=== PATIENT | male | born 1960 | race Caucasian/White ===

== ENCOUNTER 2021-12-23 21:53 | Inpatient (IN) | payer OTHER ==
[2021-12-23 23:40] VITALS: BMI 22.9
[2021-12-24] MEDS ORDERED: METHOCARBAMOL 500 MG TABLET PO PRN (00:21)
[2021-12-24] MEDS ORDERED: IBUPROFEN 400 MG TABLET (FP) PO PRN (00:21)
[2021-12-24] MEDS ORDERED: MAG HYDROX/AL HYDROX/SIMETH 30 ML UNIT-DOSE CUP PO PRN (00:21)
[2021-12-24] MEDS ORDERED: NICOTINE 10 MG CARTRIDGE (INHALER) IH PRN (00:21)
[2021-12-24] MEDS ORDERED: ACETAMINOPHEN 325 MG TABLET (FP) PO PRN ×2 (00:21)
[2021-12-24] MEDS ORDERED: IBUPROFEN 600 MG TABLET (FP) PO PRN (00:21)
[2021-12-24] MEDS ORDERED: BENZOCAINE/MENTHOL (CHLORASEPTIC ) LOZENGE MM PRN (00:21)
[2021-12-24] MEDS ORDERED: P-EPHED 60MG/TRIPROLIDI 2.5MG TABLET PO PRN (00:21)
[2021-12-24] MEDS ORDERED: LOPERAMIDE HCL 2 MG CAPSULE PO PRN (00:21)
[2021-12-24] MEDS ORDERED: DICYCLOMINE HCL 10 MG CAPSULE PO PRN (00:21)
[2021-12-24] MEDS ORDERED: MAGNESIUM HYDROX 2400MG/30ML ORAL SUSPENSION 30 ML CUP PO PRN (00:21)
[2021-12-24] MEDS ORDERED: ONDANSETRON *ODT* 4 MG TABLET SL PRN (00:21)
[2021-12-24] MEDS ORDERED: MAGNESIUM CITRATE 300 ML BOTTLE PO PRN (00:21)
[2021-12-24] MEDS ORDERED: BISMUTH SUBSALICYLATE 524 MG/30 ML PO PRN (00:21)
[2021-12-24] MEDS ORDERED: NICOTINE POLACRILEX 2 MG GUM BUC PRN (00:21)
[2021-12-24] MEDS ORDERED: guaiFENesin 200 MG/10 ML 10 ML UNIT-DOSE CUPS PO PRN (00:21)
[2021-12-24] MEDS ORDERED: cloNIDine HCL 0.1 MG TABLET PO ONE (07:05)
[2021-12-24] MEDS ORDERED: methaDONE HCL 10 MG TABLET PO ONE ×2 (08:47)
[2021-12-24] MEDS ORDERED: methaDONE HCL 40 MG DISPERSABLE TABLET ONE (09:21)
[2021-12-24] MEDS ORDERED: methaDONE HCL 10 MG TABLET ONE (09:21)
[2021-12-24] MEDS: PRENATAL VITAMINS W/ FOLIC ACID TABLET (FP) PO SCH (10:23)
[2021-12-24] MEDS: NICOTINE 14 MG/24 HOURS TOPICAL PATCH TD SCH (10:24)
[2021-12-24] MEDS: THIAMINE HCL 100 MG TABLET (FP) PO SCH (22:25)
[2021-12-24] MEDS: MELATONIN 5 MG TABLETS PO PRN (22:25)
[2021-12-24] MEDS: hydrOXYzine PAMOATE 25 MG CAPSULE (FP) PO PRN (22:25)
[2021-12-25] MEDS ORDERED: methaDONE HCL 10 MG TABLET ONE (04:20)
[2021-12-25] MEDS ORDERED: methaDONE HCL 40 MG DISPERSABLE TABLET ONE (04:20)
[2021-12-25] MEDS ORDERED: methaDONE HCL 40 MG DISPERSABLE TABLET PO SCH (06:00)
[2021-12-25] MEDS: PRENATAL VITAMINS W/ FOLIC ACID TABLET (FP) PO SCH (10:20)
[2021-12-25] MEDS: NICOTINE 14 MG/24 HOURS TOPICAL PATCH TD SCH (10:20)
[2021-12-25 12:42] LABS: CALCIUM 8.5 mg/dL (8.5-10.1)
[2021-12-25 12:44] LABS: ALBUMIN 3.2 g/dl (3.4-5.0); BLOOD UREA NITROGEN 15.6 mg/dL (7-18)
[2021-12-25 12:46] LABS: CREATININE 0.8 mg/dL (0.55-1.3)
[2021-12-25 12:48] LABS: BILIRUBIN,TOTAL 0.2 mg/dL (0.2-1)
[2021-12-25 12:55] LABS: HEMATOCRIT 38.2 % (35.4-49); HEMOGLOBIN 13.2 GM/dL (11.7-16.9); MCH 30.8 pg (25.7-33.7); MCHC 34.7 g/dl (32.0-35.9); MEAN CELL VOLUME 88.7 fl (80-96); MEAN PLT VOLUME 7.5 fl (7.5-11.1); PLATELET COUNT 256 10^3/uL (134-434); RBC 4.31 M/mm3 (4.00-5.60); WHITE BLOOD COUNT 10.2 K/mm3 (4.0-10.0)
[2021-12-25] MEDS: hydrOXYzine PAMOATE 25 MG CAPSULE (FP) PO PRN (22:19)
[2021-12-25] MEDS: MELATONIN 5 MG TABLETS PO PRN (22:19)
[2021-12-25] MEDS: THIAMINE HCL 100 MG TABLET (FP) PO SCH (22:19)
[2021-12-26] MEDS ORDERED: methaDONE HCL 40 MG DISPERSABLE TABLET ONE (04:26)
[2021-12-26] MEDS ORDERED: methaDONE HCL 10 MG TABLET ONE (04:26)
[2021-12-26 09:19] VITALS: BP 124/72; PULSE 60; TEMP 97.8
[2021-12-26] MEDS: NICOTINE 14 MG/24 HOURS TOPICAL PATCH TD SCH (10:44)
[2021-12-26] MEDS: hydrOXYzine PAMOATE 25 MG CAPSULE (FP) PO PRN (10:44)
[2021-12-26] MEDS: PRENATAL VITAMINS W/ FOLIC ACID TABLET (FP) PO SCH (10:44)
== END 2021-12-26 14:05 | disposition other institution (70) | DRG 773 ==
LOC: YASAS 21:53 → Y6N 12-24 02:08
PROVIDERS: ADMIT Allergy & Immunology; ATTEND Surgery
PROC: HZ2ZZZZ Detoxification Services for Substance Abuse Treatment (ICD-10-PCS; principal; 2021-12-24)
DX: F10.230 Alcohol dependence with withdrawal, uncomplicated (principal); F11.20 Opioid dependence, uncomplicated; F14.20 Cocaine dependence, uncomplicated; F17.210 Nicotine dependence, cigarettes, uncomplicated
CPT/HCPCS: 36415; 80053; 85027; 86780; C9803-CS; J0735; U0003; U0005

== ENCOUNTER 2021-12-26 14:10 | Inpatient (IN) | payer OTHER ==
[2021-12-26 14:26] VITALS: TEMP 97.5
[2021-12-26] MEDS ORDERED: MAGNESIUM CITRATE 300 ML BOTTLE PO PRN (16:04)
[2021-12-26] MEDS ORDERED: NICOTINE 10 MG CARTRIDGE (INHALER) IH PRN (16:04)
[2021-12-26] MEDS ORDERED: P-EPHED 60MG/TRIPROLIDI 2.5MG TABLET PO PRN (16:04)
[2021-12-26] MEDS ORDERED: NICOTINE POLACRILEX 2 MG GUM BUC PRN (16:04)
[2021-12-26] MEDS ORDERED: ACETAMINOPHEN 325 MG TABLET (FP) PO PRN (16:04)
[2021-12-26] MEDS ORDERED: guaiFENesin 200 MG/10 ML 10 ML UNIT-DOSE CUPS PO PRN (16:04)
[2021-12-26] MEDS ORDERED: IBUPROFEN 400 MG TABLET (FP) PO PRN (16:04)
[2021-12-26] MEDS ORDERED: BENZOCAINE/MENTHOL (CHLORASEPTIC ) LOZENGE MM PRN (16:04)
[2021-12-26] MEDS ORDERED: LOPERAMIDE HCL 2 MG CAPSULE PO PRN (16:04)
[2021-12-26] MEDS ORDERED: MAGNESIUM HYDROX 2400MG/30ML ORAL SUSPENSION 30 ML CUP PO PRN (16:04)
[2021-12-26] MEDS ORDERED: MAG HYDROX/AL HYDROX/SIMETH 30 ML UNIT-DOSE CUP PO PRN (16:04)
[2021-12-26] MEDS ORDERED: THIAMINE HCL 100 MG TABLET (FP) PO SCH (22:00)
[2021-12-26] MEDS ORDERED: MELATONIN 5 MG TABLETS PO SCH (22:00)
[2021-12-27 06:28] VITALS: BP 139/85; PULSE 61
[2021-12-27] MEDS ORDERED: methaDONE HCL 10 MG TABLET PO SCH (10:00)
[2021-12-27] MEDS ORDERED: PRENATAL VITAMINS W/ FOLIC ACID TABLET (FP) PO SCH (10:00)
[2021-12-27] MEDS ORDERED: methaDONE HCL 40 MG DISPERSABLE TABLET ONE (10:40)
[2021-12-28] MEDS ORDERED: methaDONE HCL 10 MG TABLET PO SCH (10:00)
== END 2021-12-27 13:05 | disposition home or self-care (01) | DRG 772 ==
LOC: YASAS 14:10 → Y3E 14:11
PROVIDERS: ADMIT Allergy & Immunology; ATTEND Psychiatry & Neurology Pain Medicine
PROC: HZ42ZZZ Group Counseling for Substance Abuse Treatment, Cognitive-Behavioral (ICD-10-PCS; principal; 2021-12-26)
DX: F10.20 Alcohol dependence, uncomplicated (principal); F11.20 Opioid dependence, uncomplicated; F14.20 Cocaine dependence, uncomplicated; F17.210 Nicotine dependence, cigarettes, uncomplicated